=== PATIENT | female | born 1990 | race Caucasian/White ===

== ENCOUNTER 2020-07-17 11:30 | Emergency (ER) | payer SELFPAY ==
[~2020-07-17] VITALS: Ht 157.5 cm; Wt 65.0 kg
[2020-07-17 11:42] VITALS: BP 137/89
[2020-07-17] MEDS ORDERED: ACETAMINOPHEN 500MG TABLET PO ONE (12:00)
[2020-07-17] MEDS ORDERED: LIDOCAINE HCL/EPINEPHRINE 1%-EPI 1:100,000 20 ML VIAL INFIL ONE (12:00)
[2020-07-17] MEDS ORDERED: TETANUS, DIPHTHERIA, PERTUSSIS VAC/PF 0.5ML (>7YR OLD) IM ONE (12:30)
== END 2020-07-17 14:24 | disposition home or self-care (01) ==
LOC: ER 11:30
DX: S61.411A Laceration without foreign body of right hand, initial encounter (principal); X58.XXXA Exposure to other specified factors, initial encounter; Y93.89 Activity, other specified; Y92.89 Other specified places as the place of occurrence of the external cause; Y99.8 Other external cause status; Z88.0 Allergy status to penicillin
CPT/HCPCS: 12001; 73130; 90715; 99283; J3490

== ENCOUNTER 2021-11-08 22:17 | Emergency (ER) | payer MEDICAID ==
[~2021-11-08] VITALS: Ht 157.5 cm; Wt 84.0 kg
[2021-11-09 00:45] VITALS: BP 113/60
[2021-11-09] MEDS ORDERED: ACETAMINOPHEN WITH CODEINE 300/30MG TABLET PO ONE (00:45)
[2021-11-09] MEDS ORDERED: ACETAMINOPHEN WITH CODEINE 300/30MG TABLET PO NR (02:30)
[2021-11-09] MEDS ORDERED: CYCL10TA7 MT (03:25)
[2021-11-09] MEDS ORDERED: IBUP-2029 MT (03:25)
== END 2021-11-09 03:37 | disposition home or self-care (01) ==
LOC: ER 22:17
DX: S09.8XXA Other specified injuries of head, initial encounter (principal); S16.1XXA Strain of muscle, fascia and tendon at neck level, initial encounter; S39.012A Strain of muscle, fascia and tendon of lower back, initial encounter; V49.49XA Driver injured in collision with other motor vehicles in traffic accident, initial encounter; Y93.89 Activity, other specified; Y92.410 Unspecified street and highway as the place of occurrence of the external cause; Z88.0 Allergy status to penicillin
CPT/HCPCS: 99284